=== PATIENT | female | born 1975 | race American Indian/Alaskan Native ===

== ENCOUNTER 2017-03-29 06:49 | Emergency (ER) | payer SELFPAY ==
[2017-03-29 06:58] VITALS: BP 152/106
--- NOTE | 2017-03-29 08:10 | Emergency Department Report ---
HPI - General Chief Complaint: Allergic Reaction Time Seen by Provider: 03/29/17 07:53 - HPI HPI: Patient here reports allergic reaction from medication. H&H and unable to tell me medication allergic to. She denies any coughing, wheezing, swelling of lip, swelling of tongue or difficulty swallowing. She reports rash to her arms. ED Past Medical Hx - Past Medical History Previous Medical History?: Yes Hx Asthma: Yes - Surgical History Past Surgical History?: No - Social History Smoking Status: Never Smoker Substance Use Type: None ED Review of Systems ROS: Stated complaint: POSS SIDE EFFECTS FROM MEDS Other details as noted in HPI Comment: All other systems reviewed and negative Constitutional: denies: chills, fever Eyes: eye pain, vision change ENT: ear pain, throat pain, dental pain, hearing loss, epistaxis, congestion Respiratory: no symptoms reported Cardiovascular: denies: chest pain, palpitations, dyspnea on exertion, edema, syncope Gastrointestinal: denies: abdominal pain, nausea, vomiting Musculoskeletal: denies: back pain, joint swelling, arthralgia, myalgia Skin: rash. denies: lesions, pruritus Neurological: denies: headache, weakness Physical Exam - Physical Exam Vital Signs: Vital Signs 03/29/17 06:54 Temperature 97.8 F Pulse Rate 69 Respiratory 20 Rate Blood Pressure 152/106 O2 Sat by Pulse 97 Oximetry General: This is a 41-year-old female well-nourished well-developed in no acute distress Physical Exam: Head: Normocephalic, atraumatic Neck: Supple, full range of motion,no adenopathy. No tracheal deviation Mouth: Moist, oral airways patent, tongue is normal, uvula is midline. No pharyngeal erythema. No peritonsillar abscess. Lungs: Clear to auscultate bilaterally, no rhonchi wheezes or rales. No murmur work of breathing CV: S1-S2, regular rate rhythm negative murmur. Skin: Sparselyscattered to bilateral upper extremity urticarial erythema area. Psych: Normal mood and behavior. ED Course Vital Signs 03/29/17 06:54 Temperature 97.8 F Pulse Rate 69 Respiratory 20 Rate Blood Pressure 152/106 O2 Sat by Pulse 97 Oximetry - Reevaluation(s) Reevaluation #1: stable throughout ED stay ED Medical Decision Making - Medical Decision Making ED course: After seeing patient and examining her and prior to ordered medication for allergic reaction I was told by nurse the patient eloped. Patient was stable with physical findings. Critical care attestation.: If time is entered above; I have spent that time in minutes in the direct care of this critically ill patient, excluding procedure time. ED Disposition Clinical Impression: Urticaria, Elevated blood pressure reading Disposition: ELOPED Is pt being admited?: No Does the pt Need Aspirin: No Condition: Stable Referrals: PRIMARY CARE, [Primary Care Provider] - 3-5 Days
== END 2017-03-29 14:40 | disposition left against medical advice (07) ==
LOC: ED 06:49
DX: Z53.21 Procedure and treatment not carried out due to patient leaving prior to being seen by health care provider (principal)